=== PATIENT | male | born 1935 | race Caucasian/White ===

== ENCOUNTER → 2016-08-04 | Outpatient (CLI) | payer BC ==
[~2016-08-04] MED LIST: ACET-1175 PO; ASPCH81 PO; ASTN; ATV5X PO; CHOL2000 PO; CYCL10TA6 PO; DICL1GEL12; FURO20TA PO; HYZ/10015 PO; INSU100I17 SC; INSU1INJ7 SC; LEVO50TA PO; LOSA1TAB PO; POTA-327 PO; PRAV20TA PO; PROP80CA7 PO; SULF800T23 PO
[2016-08-04 17:19] LABS: BASO % 0.3 %; BASO ABS # 0.03 K/uL (0-0.2); COMPLETE YES; EOS % 2.4 %; HEMATOCRIT 42.2 % (42-52); IG% 0.5 %; LYMPH % 21.6 %; LYMPH ABS # 2.08 K/uL (1.2-3.4); MEAN CELL VOLUME 92.1 fL (80-100); MEAN CORPUSCULAR HEMOGLOBIN 30.1 pg (25-34); MEAN CORPUSCULAR HGB CONC 32.7 g/dl (32-36); MEAN PLATELET VOLUME 9.8 fL (7.4-10.4); MONO % 10.3 %; NEUT % 64.9 %; PLATELET COUNT 249 K/uL (130-400); RED BLOOD COUNT 4.58 M/uL (4.7-6.1); WHITE BLOOD COUNT 9.64 K/uL (4.8-10.8)
[2016-08-04 17:26] LABS: URINE APPEARANCE CLEAR (CLEAR); URINE BILIRUBIN NEG (NEG); URINE COLOR YELLOW; URINE EPITHELIAL CELL AUTO 0-5 /lpf (0-5); URINE NITRITE NEG (NEG); URINE PH 5.5 (4.5-7.5); URINE SPECIFIC GRAVITY 1.006 (1.000-1.030); UROBILINOGEN NEG (NEG); ZZUR CULT IF INDIC CLEAN CATCH NO
[2016-08-04 17:27] LABS: ALT/SGPT 32 U/L (12-78); AST/SGOT 18 U/L (15-37); BLOOD UREA NITROGEN 29 mg/dl (7-18); BUN/CREATININE RATIO 20.5 (10-20); CALCIUM 9.7 mg/dl (8.5-10.1); CARBON DIOXIDE 31 mmol/L (21-32); CHLORIDE 102 mmol/L (98-107); GLUCOSE 133 mg/dl (70-99); POTASSIUM 4.5 mmol/L (3.5-5.1); SODIUM 140 mmol/L (136-145)
[2016-08-04 17:30] LABS: ALB/GLOB RATIO 0.9 (0.9-2); ALKALINE PHOSPHATASE 82 U/L (45-117); CHOLESTEROL 160 mg/dl (0-200); CHOLESTEROL/HDL RATIO 3.7; HDL CHOLESTEROL 43 mg/dl; LDL CHOLESTEROL CALCULATED 78 mg/dl; TRIGLYCERIDES 195 mg/dl (0-150); VERY LOW DENSITY LIPOPROT CALC 39 mg/dl
[2016-08-04 17:36] LABS: MANUAL MICROSCOPIC REQUIRED? NO; REVIEW REQ? NO
[2016-08-04 17:58] LABS: RATIO 116.7 mcg/mg (0-30.0)
[2016-08-05 06:09] LABS: ESTIMATED AVERAGE GLUCOSE 192 mg/dl; HA1C FLAG Normal (Normal)
== END | disposition home or self-care (01) ==
LOC: C.LABBFT 10:16
PROVIDERS: ATTEND Internal Medicine
DX: E55.9 Vitamin D deficiency, unspecified (principal); E11.42 Type 2 diabetes mellitus with diabetic polyneuropathy; E78.5 Hyperlipidemia, unspecified

== ENCOUNTER → 2016-11-11 | Outpatient (CLI) | payer BC ==
[~2016-11-11] MED LIST changes: -SULF800T23 PO
[2016-11-12 07:34] LABS: ESTIMATED AVERAGE GLUCOSE 183 mg/dl; HA1C FLAG Normal (Normal)
== END | disposition home or self-care (01) ==
LOC: C.LABBFT 13:55
PROVIDERS: ATTEND Nurse Practitioner Adult Health
DX: E11.8 Type 2 diabetes mellitus with unspecified complications (principal)

== ENCOUNTER → 2017-01-19 | Outpatient (CLI) | payer BC ==
[2017-01-19 16:17] LABS: PROSTATE SPECIFIC ANTIGEN 13.1 ng/ml (0.000-4.000); THYROID STIMULATING HORMONE 1.01 uIu/ml (0.300-4.500)
[2017-01-25 20:21] LABS: ALTERNARIA CLASS 0; ALTERNARIA IGE <0.10 KU/L; ASPERG FUMIG CLASS 0; ASPERG FUMIG IGE <0.10 KU/L; BAHIA GRASS ASM CLASS 0; BAHIA GRASS IGE <0.10 KU/L; BERMUDA GRASS CLASS 0; BERMUDA GRASS IGE <0.10 KU/L; BIRCH CLASS 0; BLACK LOCUST CLASS 0; BLACK LOCUST IGE <0.35 kU/L (<0.35); CAT DANDER CLASS 0; CLADOSPORIUM HER CLASS 0; CLADOSPORIUM HER IGE <0.10 KU/L; COCKROACH CLASS 0; D. FARINAE CLASS 0; D. FARINAE IGE <0.10 KU/L; D. PTERONYSSINUS CLASS 0; D. PTERONYSSINUS IGE <0.10 KU/L; DOG DANDER CLASS 0; ELM CLASS 0; ENGLISH PLAN CLASS 0; ENGLISH PLAN IGE <0.10 KU/L; JOHNSON CLASS 0; JOHNSON IGE <0.10 KU/L; JUNE (KENTUCKY BLUE) CLASS 0; JUNE IGE <0.10 KU/L; MAPLE (BOX ELDER) IGE <0.10 KU/L; MAPLE CLASS 0; MOUNTAIN CEDAR ASM CLASS 0; MOUNTAIN CEDAR IGE <0.10 KU/L; MUCOR CLASS 0; MUCOR IGE <0.10 KU/L; NETTLE CLASS 0; NETTLE IGE <0.10 KU/L; PENIC NOTATUM CLASS 0; PENIC NOTATUM IGE <0.10 KU/L; ROUGH PIGWEED CLASS 0; ROUGH PIGWEED IGE <0.10 KU/L; SHORT RAGWEED CLASS 0; SHORT RAGWEED IGE <0.10 KU/L; STEMPHY BOTRY CLASS 0; STEMPHY BOTRY IGE <0.10 KU/L; WHITE HICKORY ASM CLASS 0; WHITE HICKORY IGE <0.10 kU/L (<0.35); WHITE MULBERRY CLASS 0; WHITE MULBERRY IGE <0.10 KU/L
== END | disposition home or self-care (01) ==
LOC: C.LAB1850 14:24
PROVIDERS: ATTEND Internal Medicine Pulmonary Disease
DX: R97.20 Elevated prostate specific antigen [PSA] (principal); E03.9 Hypothyroidism, unspecified; J31.0 Chronic rhinitis; R05 Cough; R09.82 Postnasal drip

== ENCOUNTER → 2017-05-09 | Outpatient (CLI) | payer BC ==
[~2017-05-09] MED LIST changes: -HYZ/10015 PO
[2017-05-10 06:48] LABS: ESTIMATED AVERAGE GLUCOSE 177 mg/dl; HA1C FLAG Normal (Normal)
== END | disposition home or self-care (01) ==
LOC: C.LAB1850 16:13
PROVIDERS: ATTEND Nurse Practitioner Adult Health
DX: E11.69 Type 2 diabetes mellitus with other specified complication (principal)

== ENCOUNTER → 2017-09-11 | Outpatient (CLI) | payer BC ==
[2017-09-11 15:45] LABS: BLOOD UREA NITROGEN 25 mg/dl (7-18); CALCIUM 9.6 mg/dl (8.5-10.1); CARBON DIOXIDE 29 mmol/L (21-32); GLUCOSE 177 mg/dl (70-99); SODIUM 138 mmol/L (136-145)
== END | disposition home or self-care (01) ==
LOC: C.LAB1850 14:14
PROVIDERS: ATTEND Nurse Practitioner Adult Health
DX: R97.20 Elevated prostate specific antigen [PSA] (principal); E11.319 Type 2 diabetes mellitus with unspecified diabetic retinopathy without macular edema; E11.29 Type 2 diabetes mellitus with other diabetic kidney complication

== ENCOUNTER → 2018-03-09 | Outpatient (CLI) | payer BC ==
[~2018-03-09] MED LIST changes: +PROP80CA29 PO; -PROP80CA7 PO
[2018-03-09 17:48] LABS: BLOOD UREA NITROGEN 26 mg/dl (7-18); CALCIUM 9.4 mg/dl (8.5-10.1); CARBON DIOXIDE 30 mmol/L (21-32); CHOLESTEROL 146 mg/dl (0-200); GLUCOSE 146 mg/dl (70-99); LDL CHOLESTEROL CALCULATED 61 mg/dl; POTASSIUM 4.2 mmol/L (3.5-5.1); SODIUM 141 mmol/L (136-145)
== END | disposition home or self-care (01) ==
LOC: C.LABBFT 12:02
PROVIDERS: ATTEND Nurse Practitioner Adult Health
DX: I10 Essential (primary) hypertension (principal); E11.29 Type 2 diabetes mellitus with other diabetic kidney complication; E78.5 Hyperlipidemia, unspecified

== ENCOUNTER 2021-04-24 21:11 | Inpatient (IN) ==
[2021-04-24 21:52] LABS: Appearance Urine Clear (Clear); Bacteria Urine Automated Negative (Negative); Bilirubin Urine Negative (Negative); Blood Urine Negative (Negative); Color Urine Yellow; Glucose Urine UA Negative (Negative); Ketones Urine Negative (Negative); Leukocyte Esterase Urine Trace (Negative); Nitrite Urine Negative (Negative); Protein Urine 1+ (Negative); RBC Urine Automated 0-4 /hpf (0-4); Specific Gravity Urine 1.012 (1.000-1.030); Urobilinogen Urine Negative (Negative); pH Urine 6.5 (4.5-7.5)
[2021-04-24 21:58] LABS: Basophils # (auto) 0.03 K/uL (0-0.2); Basophils % (auto) 0.2 %; Eosinophils # (auto) 0.47 K/uL (0-0.5); Eosinophils % (auto) 3.8 %; Hematocrit (blood only) 43.2 % (42-52); Hemoglobin 13.2 g/dL (14.0-18.0); Immature Granulocytes # (auto) 0.03 K/uL (0.00-0.02); Immature Granulocytes % (auto) 0.2 %; Lymphocytes # (auto) 1.41 K/uL (1.2-3.4); Lymphocytes % (auto) 11.5 %; Mean Corpuscular Hemoglobin 27.4 pg (25-34); Mean Corpuscular Hgb Conc 30.6 g/dL (32-36); Mean Corpuscular Volume 89.8 fL (80-100); Mean Platelet Volume 9.5 fL (7.4-10.4); Monocytes # (auto) 1.49 K/uL (0.11-0.59); Monocytes % (auto) 12.1 %; Neutrophils # (auto) 8.84 K/uL (1.4-6.5); Neutrophils % (auto) 72.2 %; Platelet Count 300 K/uL (130-400); RDW Coefficient of Variation 15.8 % (11.5-14.5); RDW Standard Deviation 52.2 fL (36.4-46.3); Red Blood Count 4.81 M/uL (4.7-6.1); White Blood Count 12.27 K/uL (4.8-10.8)
--- NOTE | 2021-04-24 22:08 | XRay Report ---
XR chest 1V portable INDICATION: MN ^weakness . TECHNIQUE: Single frontal radiograph of the chest was obtained. Comparison: Comparison is made to chest one view 09/28/2018 FINDINGS: No lines and tubes are seen. Calcified aortic knob is seen. Lungs are underinflated but clear. No annie dence of pleural effusion or pneumothorax. IMPRESSION: No acute chest disease. ACT 112: Negative or not required by law. Electronically signed by: Jamie Ramey M.D. 04/24/2021 10:07 PM
[2021-04-24 22:10] LABS: Albumin Level 2.8 gm/dl (3.4-5.0); BUN Creatinine Ratio 22.2 (10-20); Calcium 9.9 mg/dl (8.5-10.1); Creatinine Clr Calc Pharmacy 58.5 ml/min; Est GFR (African American) 59.3 ml/min; Est GFR (Non-African American) 51.2 ml/min; Potassium 4.3 mmol/L (3.5-5.1)
[2021-04-24 22:20] LABS: Albumin Globulin Ratio 0.5 (0.9-2); Bilirubin,Total 0.5 mg/dl (0.2-1); Globulin 5.3 gm/dl (2.5-4.0); Thyroid Stimulating Hormone 2.82 uIu/ml (0.300-4.500); Total Protein 8.1 gm/dl (6.4-8.2)
[2021-04-24] MEDS ORDERED: VANCOMYCIN HCL 2,750 MG in SODIUM CHLORIDE 0.9% 500 ML IV ONE (22:20)
[2021-04-24] MEDS ORDERED: PIPERACILL/TAZOBAC CONSULT ACTIVE PRN (22:20)
[2021-04-24] MEDS ORDERED: PIPERACILLIN/TAZOBACTAM 4.5 GM/120 ML BAG IV ONE (22:20)
[2021-04-24] MEDS ORDERED: VANCOMYCIN CONSULT ACTIVE PRN (22:20)
[2021-04-24] MEDS ORDERED: CLINDAMYCIN 900 MG in DEXTROSE 5% 50 ML IV ONE (22:20)
[2021-04-24] MEDS ORDERED: SODIUM CHLORIDE 0.9% 1000ML 1,000 ML IV ONE (22:32)
[2021-04-24 22:47] LABS: C Reactive Protein 1.91 mg/dl (0-0.29)
[2021-04-24] MEDS ORDERED: OPTIRAY 320 125ml IV ONE (23:09)
--- NOTE | 2021-04-24 23:16 | CT Scan Report ---
CT angio chest PE protocol INDICATION: MN ^PE. TECHNIQUE: Multidetector row helical CT of the chest was performed. Coronal and sagittal reformations were obtained. Automated dose lowering techniques and/or adjustment according to patient size were u tilized for this exam. Comparison: None available at the time of this dictation. FINDINGS: Lungs and pleura: Bibasilar atelectasis versus scarring is seen. Heart and pericardium: Cardiomegaly is seen with biatrial enlargement. Vessels: Limited evaluation due to photon starvation. No central or lobar pulmonary embolism is seen. The pulmonary trunk measures 30 mm, the right pulmonary artery measures 26 mm, and the left pulmonar y artery measures 27 mm in diameter. Mediastinum and ashley: Unremarkable. Chest wall and lower neck: Unremarkable. Abdomen: Unremarkable. Bones: Degenerative changes in the thoracic spine. IMPRESSION: 1. Limited evaluation secondary to photon starvation. However within these limits, no central or lob ar pulmonary embolus is seen. 2. Bilateral atelectasis versus scarring. 3. Cardiomegaly and pulmonary hypertension. ACT 112: Negative or not required by law. Electronically signed by: Jamie Ramey M.D. 04/24/2021 11:15 PM
[2021-04-24 23:18] LABS: Creatine Kinase 112 U/L (39-308)
--- NOTE | 2021-04-24 23:32 | CT Scan Report ---
CT abd pelvis IV con only CLINICAL INDICATION: MN ^B12B CTR ^lower abd and rectal/perineum pain and infection. TECHNIQUE: Helical axial images of the abdomen and pelvis were obtained and displayed. Automated dose lowering techniques and/or adjustment according to patient size were utilized for this exam. This e xam was performed with intravenous contrast. COMPARISON: None available at the time of this dictation. FINDINGS: Exam is limited due to photon starvation artifact. Lower chest: No acute abnormality Liver: Unremarkable. No focal lesions are seen. Gallbladder and biliary tree: No calcified gallstones. Normal caliber wall. No intra- or extrahepatic biliary ductal dilation. Pancreas: Fatty replacement of the pancreas is seen. There is increased density at the pancreatic hea d with suggestion of peripancreatic stranding, though evaluation is limited. Spleen: Unremarkable. Adrenals: Unremarkable. Kidneys and ureters: Subcentimeter hypodensities are too small to characterize. Bladder: Unremarkable. Reproductive organs: Prostatomegaly is seen. Bowel: Diverticulosis is seen without evidence of diverticulitis. The appendix is normal. Lymph nodes Retroperitoneal: Unremarkable. Mesenteric: Unremarkable. Pelvic: Unremarkable. Peritoneum: Normal Vessels: Atherosclerotic calcifications are seen. Abdominal wall: Unremarkable. Evaluation of the inferior gluteal crease is limited due to field of vi ew. Bones: Degenerative changes in the visualized spine. IMPRESSION: Limited exam. There is suggestion of edema and peripancreatic fat stranding of the pancreatic head. C linical correlation for acute pancreatitis is recommended. Otherwise no acute abnormalities. Evaluati on for infectious process and the inferior gluteal crease is limited due to field of view. ACT 112: Negative or not required by law. Electronically signed by: Jamie Ramey M.D. 04/24/2021 11:30 PM
[2021-04-24 23:49] LABS: Lipase 195 U/L (73-393)
--- NOTE | 2021-04-24 23:51 | Emergency Department Note ---
ED Visit Note Patient was seen and evaluated at the bedside w/ Belen Ag PA-C. Please see their note for history, physical, details, and disposition. Patient did present with increasing weakness and shortness of breath. The patient was satting in the 80s. Patient did have bladder completed on along with CTs. CT angiography without PE but does show pulmonary hypertension. The patient does have cellulitis. Patient was admitted to the hospitalist service. .
--- NOTE | 2021-04-25 00:12 | Emergency Department Note ---
History of Present Illness General Chief complaint: Weakness Stated complaint: Weakness Time Seen by Provider: 04/24/21 21:51 History of Present Illness This 85-year-old presents to the ER complaining of increasing weakness, shortness of breath and not feeling well for the past few days Location: Generalized Quality: Weak Severity: Moderate Duration: Past few days Timing: Started few days ago Context: Family was concerned and brought him in Modifying factors: better with rest; worse with activity EMS states his pulse ox was in the 80s when they arrived which improved with nasal cannula. Patient does not normally wear oxygen. No history of heart failure. Patient states he has become more weak recently. He does not get around much. Patient complains of lower abdominal pain and rectal discomfort. He states his legs normally look like this. Patient did fall today because of weakness but did not hit his head. Patient denies chest pain, fevers, flulike illness. Home Medications Medication Instructions Recorded Confirmed Type acetaminophen 325 mg tablet 650 mg PO QID PRN 09/28/18 11/16/20 History (Tylenol) aspirin 81 mg tablet,delayed 81 mg PO DAILY 09/28/18 11/16/20 History release (Aspir-) cholecalciferol (vitamin D3) 50 2,000 unit PO DAILY 09/28/18 11/16/20 History mcg (2,000 unit) capsule (Vitamin D3) diclofenac sodium 1 % topical gel 4 g TOPICAL Q6 PRN 09/28/18 11/16/20 History (Voltaren) ipratropium bromide 21 mcg (0.03 1 - 2 sprays INTNAS .COMPLEX PRN 02/28/19 0 11/16/20 History %) nasal spray ml pen needle, diabetic 31 gauge x #400 ea 01/09/20 11/16/20 Rx 16" (BD Ultra-Fine Short Pen Needle) potassium chloride 10 mEq 10 meq PO DAILY #90 tab 03/20/20 11/16/20 Rx tablet,extended release (Klor-Con) insulin lispro 100 unit/mL See Rx Instructions SUBCUT 06/30/20 11/16/20 Rx subcutaneous pen (Humalog KwikPen .COMPLEX #8 box (U-100) Insulin) furosemide 20 mg tablet (Lasix) 20 mg PO DAILY #90 tab 10/26/20 11/16/20 Rx hydrochlorothiazide 25 mg tablet 25 mg PO DAILY #90 tab 10/26/20 11/16/20 Rx levothyroxine 50 mcg tablet 50 mcg PO DAILY #90 tab 10/26/20 11/16/20 Rx (Synthroid) lorazepam 0.5 mg tablet (Ativan) 0.5 mg PO HS PRN #30 tab 10/26/20 11/16/20 Rx losartan 100 mg tablet 100 mg PO DAILY #90 tab 10/26/20 11/16/20 Rx pravastatin 80 mg tablet 80 mg PO DAILY #90 tab 10/26/20 11/16/20 Rx propranolol 120 mg capsule,24 120 mg PO DAILY #90 cap 10/26/20 11/16/20 Rx hr,extended release (Inderal LA) Basaglar KwikPen U-100 Insulin 100 80 unit SUBCUT BID 90 Days #150 ml 11/17/20 Rx unit/mL (3 mL) subcutaneous NS (insulin glargine) blood sugar diagnostic (OneTouch #400 ea 11/17/20 Rx Verio test strips) Allergies Allergy/AdvReac Type Severity Reaction Status Date / Time amlodipine Allergy Unknown unknown Verified 11/16/20 14:08 primidone Allergy Unknown unknown Verified 11/16/20 14:08 sertraline Allergy Unknown Unknown Verified 04/25/21 01:17 Sulfa (Sulfonamide Allergy Unknown Unknown Verified 04/25/21 01:17 Antibiotics) Past Med/Surg History Medical History Decubitus ulcer Diabetes with neurologic complications Surgical History History of colonoscopy Family History Brother Prostate cancer Social History (Updated 04/25/21 @ 01:41 by Isidra Banks DO) Smoking Status: Former smoker Tobacco Type: Cigarettes packs per day: 2; Years Smoked: 20; Hx Alcohol Use: No Hx Substance Use: No Preferred Language: Cambodian Communication Ability: Effective Quality [facility] Required: Yes Beliefs That Will Affect Care: None Current Living Situation Comment: Lives with son and daughter in law current occupational status: retired Feels Safe at Home: Yes Safety Concerns: Feels Safe At This Time Assistive Devices: Glasses and Walker Review of Systems A total of 10 systems reviewed and were otherwise negative Physical Exam Vital Signs Vital Signs - 24 hr 04/24/21 21:20 04/24/21 21:22 04/24/21 21:30 Temperature 36.8 C Temperature Source Oral Pulse Rate 86 83 74 Pulse Rate from SpO2 Sensor Pulse Rhythm Regular Pulse Strength Normal Respiratory Rate 22 20 22 Respiratory Effort / Characteristics Non-Labored Respiratory Depth Normal Respiratory Pattern Regular Blood Pressure 156/80 H Blood Pressure [Left Arm] Blood Pressure Mean 105 Blood Pressure Mean [Left Arm] Blood Pressure Position Sitting Pulse Oximetry 94 99 95 Oxygen Delivery Method Nasal Cannula Oxygen Flow Rate 4 Sepsis Recent Fever Within 48 Hours No Sepsis New/Unexplained Change in Mental Status No Sepsis Action Taken by Nursing No Action Required 04/24/21 21:33 04/24/21 21:43 04/24/21 21:44 Temperature Temperature Source Pulse Rate Pulse Rate from SpO2 Sensor Pulse Rhythm Pulse Strength Respiratory Rate Respiratory Effort / Characteristics Respiratory Depth Respiratory Pattern Blood Pressure Blood Pressure [Left Arm] Blood Pressure Mean Blood Pressure Mean [Left Arm] Blood Pressure Position Pulse Oximetry 93 90 90 Oxygen Delivery Method Nasal Cannula Nasal Cannula Nasal Cannula Oxygen Flow Rate 4 6 6 Sepsis Recent Fever Within 48 Hours Sepsis New/Unexplained Change in Mental Status Sepsis Action Taken by Nursing 04/24/21 22:00 04/24/21 22:30 04/24/21 22:36 Temperature 36.6 C Temperature Source Rectal Pulse Rate 77 74 Pulse Rate from SpO2 Sensor Pulse Rhythm Pulse Strength Respiratory Rate 13 16 Respiratory Effort / Characteristics Respiratory Depth Respiratory Pattern Blood Pressure Blood Pressure [Left Arm] Blood Pressure Mean Blood Pressure Mean [Left Arm] Blood Pressure Position Pulse Oximetry 92 92 Oxygen Delivery Method Oxygen Flow Rate Sepsis Recent Fever Within 48 Hours Sepsis New/Unexplained Change in Mental Status Sepsis Action Taken by Nursing 04/24/21 22:51 04/24/21 23:09 04/24/21 23:30 Temperature Temperature Source Pulse Rate 82 86 Pulse Rate from SpO2 Sensor 85 83 Pulse Rhythm Pulse Strength Respiratory Rate 12 27 H Respiratory Effort / Characteristics Respiratory Depth Respiratory Pattern Blood Pressure Blood Pressure [Left Arm] 159/59 H Blood Pressure Mean Blood Pressure Mean [Left Arm] 92 Blood Pressure Position Pulse Oximetry 92 87 L Oxygen Delivery Method Oxygen Flow Rate 6 6 Sepsis Recent Fever Within 48 Hours Sepsis New/Unexplained Change in Mental Status Sepsis Action Taken by Nursing 04/25/21 00:11 04/25/21 00:30 Temperature Temperature Source Pulse Rate 79 72 Pulse Rate from SpO2 Sensor Pulse Rhythm Pulse Strength Respiratory Rate 16 15 Respiratory Effort / Characteristics Respiratory Depth Respiratory Pattern Blood Pressure 127/64 Blood Pressure [Left Arm] Blood Pressure Mean 85 Blood Pressure Mean [Left Arm] Blood Pressure Position Pulse Oximetry 92 Oxygen Delivery Method Oxygen Flow Rate 6 Sepsis Recent Fever Within 48 Hours Sepsis New/Unexplained Change in Mental Status Sepsis Action Taken by Nursing VITALS: Vitals are noted on the nurse's note and reviewed by myself. Vital signs hypoxic on room air but improved with nasal cannula. GENERAL: Elderly male weak appearing, in no acute distress, nondiaphoretic, well-developed well-nourished. SKIN: Venous stasis changes to lower legs with left leg more erythematous and warm concerning for infection, stage II decubitus ulcer to the buttocks with surrounding erythema extending to the scrotum and perineum tender to palpation concerning for infection, lower abdominal pannus and groin area with candidiasis, the rest of the skin was without bruising. There is no tenting of the skin. Capillary reflex less than 2 seconds. HEAD: Normocephalic atraumatic. EARS: External auditory canals clear, EYES: Pupils equal round and reactive to light and accommodation. Conjunctivae without injection, sclerae without icterus. Extraocular movements intact. NOSE: Patent, turbinates without inflammation or discharge. No sinus tenderness. MOUTH: Mucous membranes mildly dry. Pharynx without erythema or exudate. Uvula midline. Airway patent. Tongue does not deviate. NECK: Supple without nuchal rigidity. No lymphadenopathy. No thyromegaly. Cervical spine is nontender. No JVD. HEART: Regular rate and rhythm LUNGS: Clear to auscultation bilaterally without wheezes, rales or rhonchi. No retractions or accessory muscle use. ABDOMEN: Positive bowel sounds x 4. Normal tympanic percussion. Soft, tender lower abdomen, without masses or organomegaly. Nieto sign negative. No guarding or rebound tenderness. No CVA tenderness MUSCULOSKELETAL: No muscle atrophy noted. NEURO: Patient was alert and oriented to person place and time. Normal sensation to light and sharp touch. No focal neurological deficits. Course Administered Medications Discontinued Medications Piperacillin Sod/Tazobactam Sod (Zosyn) 4.5 gm in 120 mls @ 240 mls/hr IV NOW ONE Stop: 04/24/21 22:49 Last Infusion: 04/24/21 23:45 Dose: 0 mls/hr Documented by: [id number] Admin: 04/24/21 23:11 Dose: 240 mls/hr Documented by: [id number] Vancomycin HCl 2,750 mg/ (Sodium Chloride) 555 mls @ 200 mls/hr IV NOW ONE Stop: 04/25/21 01:06 Last Admin: 04/24/21 23:24 Dose: 200 mls/hr Documented by: [id number] Clindamycin Phosphate 900 mg/ (Dextrose) 56 mls @ 112 mls/hr IV ONE ONE Stop: 04/24/21 22:49 Last Infusion: 04/24/21 23:45 Dose: 0 mls/hr Documented by: [id number] Admin: 04/24/21 23:11 Dose: 112 mls/hr Documented by: [id number] Sodium Chloride (Nss 1000ml) 1,000 mls @ 999 mls/hr IV .Q1H1M ONE Stop: 04/24/21 23:32 Last Admin: 04/24/21 23:25 Dose: 999 mls/hr Documented by: [id number] Ioversol (Optiray 320 125ml) 119 ml IV ONCE ONE Stop: 04/24/21 23:10 Last Admin: 04/24/21 23:09 Dose: 1 ml Documented by: [id number] Methylprednisolone (Methylprednisolone 125 Mg/2 Ml Vial) 80 mg IV NOW STA Stop: 04/25/21 00:59 Last Admin: 04/25/21 01:18 Dose: 80 mg Documented by: [id number] Medical Decision Making Medical Records Attestation: I reviewed the patient's medical records. Home Medications Current Medication List: was personally reviewed by me Laboratory Data Attestation: I reviewed the patient's lab results. Result diagrams: 04/24/21 21:30 04/24/21 21:30 Lab Results 04/24/21 04/24/21 04/24/21 Range/Units 21:30 21:30 21:30 WBC 12.27 H (4.8-10.8) K/uL RBC 4.81 (4.7-6.1) M/uL Hgb 13.2 L (14.0-18.0) g/dL Hct 43.2 (42-52) % MCV 89.8 (80-100) fL MCH 27.4 (25-34) pg MCHC 30.6 L (32-36) g/dL RDW Std Deviation 52.2 H (36.4-46.3) fL RDW Coeff of Matthieu 15.8 H (11.5-14.5) % Plt Count 300 (130-400) K/uL MPV 9.5 (7.4-10.4) fL Immature Gran % (Auto) 0.2 % Neut % (Auto) 72.2 % Lymph % (Auto) 11.5 % [place] % (Auto) 12.1 % Eos % (Auto) 3.8 % Baso % (Auto) 0.2 % Neut # (Auto) 8.84 H (1.4-6.5) K/uL Lymph # (Auto) 1.41 (1.2-3.4) K/uL Gladwin # (Auto) 1.49 H (0.11-0.59) K/uL Eos # (Auto) 0.47 (0-0.5) K/uL Baso # (Auto) 0.03 (0-0.2) K/uL Immature Gran # (Auto) 0.03 H (0.00-0.02) K/uL ESR (0-20) mm/hr Sodium 136 (136-145) mmol/L Potassium 4.3 (3.5-5.1) mmol/L Chloride 100 (98-107) mmol/L Carbon Dioxide 32 (21-32) mmol/L Anion Gap 4.0 (3-11) BUN 28 H (7-18) mg/dl Creatinine 1.27 (0.6-1.4) mg/dl Est Cr Clr Drug Dosing 58.5 ml/min Est GFR ( Amer) 59.3 ml/min Est GFR (Non-Af Amer) 51.2 ml/min BUN/Creatinine Ratio 22.2 H (10-20) Glucose 86 (70-99) mg/dl Lactate 1.6 (0.4-2.0) mmol/L Calcium 9.9 (8.5-10.1) mg/dl Total Bilirubin 0.5 (0.2-1) mg/dl AST 18 (15-37) U/L ALT 11 L (12-78) U/L Alkaline Phosphatase 93 (45-117) U/L Total Creatine Kinase (39-308) U/L C-Reactive Protein 1.91 H (0-0.29) mg/dl NT-Pro-B Natriuret Pep 152 (0-1800) pg/ml Total Protein 8.1 (6.4-8.2) gm/dl Albumin 2.8 L (3.4-5.0) gm/dl Globulin 5.3 H (2.5-4.0) gm/dl Albumin/Globulin Ratio 0.5 L (0.9-2) Lipase (73-393) U/L TSH 2.820 (0.300-4.500) uIu/ml Urine Color Urine Appearance (Clear) Urine pH (4.5-7.5) Ur Specific [place] (1.000-1.030) Urine Protein (Negative) Urine Glucose (UA) (Negative) Urine Ketones (Negative) Urine Blood (Negative) Urine Nitrite (Negative) Urine Bilirubin (Negative) Urine Urobilinogen (Negative) Ur Leukocyte Esterase (Negative) Urine WBC (Auto) (0-5) /hpf Urine RBC (Auto) (0-4) /hpf U Hyaline Cast (Auto) (0-5) /lpf U Epithel Cells (Auto) (0-5) /lpf Urine Bacteria (Auto) (Negative) Urine Yeast COVID-19 Eval Order SARS-CoV-2 (PCR) (Negative) 04/24/21 04/24/21 04/24/21 Range/Units 21:30 21:30 21:36 WBC (4.8-10.8) K/uL RBC (4.7-6.1) M/uL Hgb (14.0-18.0) g/dL Hct (42-52) % MCV (80-100) fL MCH (25-34) pg MCHC (32-36) g/dL RDW Std Deviation (36.4-46.3) fL RDW Coeff of Matthieu (11.5-14.5) % Plt Count (130-400) K/uL MPV (7.4-10.4) fL Immature Gran % (Auto) % Neut % (Auto) % Lymph % (Auto) % [place] % (Auto) % Eos % (Auto) % Baso % (Auto) % Neut # (Auto) (1.4-6.5) K/uL Lymph # (Auto) (1.2-3.4) K/uL Gladwin # (Auto) (0.11-0.59) K/uL Eos # (Auto) (0-0.5) K/uL Baso # (Auto) (0-0.2) K/uL Immature Gran # (Auto) (0.00-0.02) K/uL ESR (0-20) mm/hr Sodium (136-145) mmol/L Potassium (3.5-5.1) mmol/L Chloride (98-107) mmol/L Carbon Dioxide (21-32) mmol/L Anion Gap (3-11) BUN (7-18) mg/dl Creatinine (0.6-1.4) mg/dl Est Cr Clr Drug Dosing ml/min Est GFR ( Amer) ml/min Est GFR (Non-Af Amer) ml/min BUN/Creatinine Ratio (10-20) Glucose (70-99) mg/dl Lactate (0.4-2.0) mmol/L Calcium (8.5-10.1) mg/dl Total Bilirubin (0.2-1) mg/dl AST (15-37) U/L ALT (12-78) U/L Alkaline Phosphatase (45-117) U/L Total Creatine Kinase (39-308) U/L C-Reactive Protein (0-0.29) mg/dl NT-Pro-B Natriuret Pep (0-1800) pg/ml Total Protein (6.4-8.2) gm/dl Albumin (3.4-5.0) gm/dl Globulin (2.5-4.0) gm/dl Albumin/Globulin Ratio (0.9-2) Lipase (73-393) U/L TSH (0.300-4.500) uIu/ml Urine Color Yellow Urine Appearance Clear (Clear) Urine pH 6.5 (4.5-7.5) Ur Specific [place] 1.012 (1.000-1.030) Urine Protein 1+ H (Negative) Urine Glucose (UA) Negative (Negative) Urine Ketones Negative (Negative) Urine Blood Negative (Negative) Urine Nitrite Negative (Negative) Urine Bilirubin Negative (Negative) Urine Urobilinogen Negative (Negative) Ur Leukocyte Esterase Trace H (Negative) Urine WBC (Auto) 10-30 H (0-5) /hpf Urine RBC (Auto) 0-4 (0-4) /hpf U Hyaline Cast (Auto) 1-5 (0-5) /lpf U Epithel Cells (Auto) 10-20 H (0-5) /lpf Urine Bacteria (Auto) Negative (Negative) Urine Yeast Not Reportable COVID-19 Eval Order Covid19 at [facility] SARS-CoV-2 (PCR) NEGATIVE (Negative) 04/24/21 04/24/21 Range/Units 22:30 22:30 WBC (4.8-10.8) K/uL RBC (4.7-6.1) M/uL Hgb (14.0-18.0) g/dL Hct (42-52) % MCV (80-100) fL MCH (25-34) pg MCHC (32-36) g/dL RDW Std Deviation (36.4-46.3) fL RDW Coeff of Matthieu (11.5-14.5) % Plt Count (130-400) K/uL MPV (7.4-10.4) fL Immature Gran % (Auto) % Neut % (Auto) % Lymph % (Auto) % Glad[place] % (Auto) % Eos % (Auto) % Baso % (Auto) % Neut # (Auto) (1.4-6.5) K/uL Lymph # (Auto) (1.2-3.4) K/uL [place] # (Auto) (0.11-0.59) K/uL Eos # (Auto) (0-0.5) K/uL Baso # (Auto) (0-0.2) K/uL Immature Gran # (Auto) (0.00-0.02) K/uL ESR 87 H (0-20) mm/hr Sodium (136-145) mmol/L Potassium (3.5-5.1) mmol/L Chloride (98-107) mmol/L Carbon Dioxide (21-32) mmol/L Anion Gap (3-11) BUN (7-18) mg/dl Creatinine (0.6-1.4) mg/dl Est Cr Clr Drug Dosing ml/min Est GFR ( Amer) ml/min Est GFR (Non-Af Amer) ml/min BUN/Creatinine Ratio (10-20) Glucose (70-99) mg/dl Lactate (0.4-2.0) mmol/L Calcium (8.5-10.1) mg/dl Total Bilirubin (0.2-1) mg/dl AST (15-37) U/L ALT (12-78) U/L Alkaline Phosphatase (45-117) U/L Total Creatine Kinase 112 (39-308) U/L C-Reactive Protein (0-0.29) mg/dl NT-Pro-B Natriuret Pep (0-1800) pg/ml Total Protein (6.4-8.2) gm/dl Albumin (3.4-5.0) gm/dl Globulin (2.5-4.0) gm/dl Albumin/Globulin Ratio (0.9-2) Lipase 195 (73-393) U/L TSH (0.300-4.500) uIu/ml Urine Color Urine Appearance (Clear) Urine pH (4.5-7.5) Ur Specific [place] (1.000-1.030) Urine Protein (Negative) Urine Glucose (UA) (Negative) Urine Ketones (Negative) Urine Blood (Negative) Urine Nitrite (Negative) Urine Bilirubin (Negative) Urine Urobilinogen (Negative) Ur Leukocyte Esterase (Negative) Urine WBC (Auto) (0-5) /hpf Urine RBC (Auto) (0-4) /hpf U Hyaline Cast (Auto) (0-5) /lpf U Epithel Cells (Auto) (0-5) /lpf Urine Bacteria (Auto) (Negative) Urine Yeast COVID-19 Eval Order SARS-CoV-2 (PCR) (Negative) Imaging Data Attestation: I personally reviewed and interpreted this imaging study as follows: Radiologist's Impression: Chest X-Ray 04/24/21 21:42 XR chest 1V portable INDICATION: MN ^weakness . TECHNIQUE: Single frontal radiograph of the chest was obtained. Comparison: Comparison is made to chest one view 09/28/2018 FINDINGS: No lines and tubes are seen. Calcified aortic knob is seen. Lungs are underinflated but clear. No evidence of pleural effusion or pneumothorax. IMPRESSION: No acute chest disease. ACT 112: Negative or not required by law. Electronically signed by: Jamie Ramey M.D. 04/24/2021 10:07 PM Abdomen/Pelvis CT 04/24/21 22:16 CT abd pelvis IV con only CLINICAL INDICATION: MN ^B12B CTR ^lower abd and rectal/perineum pain and infection. TECHNIQUE: Helical axial images of the abdomen and pelvis were obtained and displayed. Automated dose lowering techniques and/or adjustment according to patient size were utilized for this exam. This exam was performed with intravenous contrast. COMPARISON: None available at the time of this dictation. FINDINGS: Exam is limited due to photon starvation artifact. Lower chest: No acute abnormality Liver: Unremarkable. No focal lesions are seen. Gallbladder and biliary tree: No calcified gallstones. Normal caliber wall. No intra- or extrahepatic biliary ductal dilation. Pancreas: Fatty replacement of the pancreas is seen. There is increased density at the pancreatic head with suggestion of peripancreatic stranding, though evaluation is limited. Spleen: Unremarkable. Adrenals: Unremarkable. Kidneys and ureters: Subcentimeter hypodensities are too small to characterize. Bladder: Unremarkable. Reproductive organs: Prostatomegaly is seen. Bowel: Diverticulosis is seen without evidence of diverticulitis. The appendix is normal. Lymph nodes Retroperitoneal: Unremarkable. Mesenteric: Unremarkable. Pelvic: Unremarkable. Peritoneum: Normal Vessels: Atherosclerotic calcifications are seen. Abdominal wall: Unremarkable. Evaluation of the inferior gluteal crease is limited due to field of view. Bones: Degenerative changes in the visualized spine. IMPRESSION: Limited exam. There is suggestion of edema and peripancreatic fat stranding of the pancreatic head. Clinical correlation for acute pancreatitis is recommended. Otherwise no acute abnormalities. Evaluation for infectious process and the inferior gluteal crease is limited due to field of view. ACT 112: Negative or not required by law. Electronically signed by: Jamie Ramey M.D. 04/24/2021 11:30 PM Chest CTA 04/24/21 22:16 CT angio chest PE protocol INDICATION: MN ^PE. TECHNIQUE: Multidetector row helical CT of the chest was performed. Coronal and sagittal reformations were obtained. Automated dose lowering techniques and/or adjustment according to patient size were utilized for this exam. Comparison: None available at the time of this dictation. FINDINGS: Lungs and pleura: Bibasilar atelectasis versus scarring is seen. Heart and pericardium: Cardiomegaly is seen with biatrial enlargement. Vessels: Limited evaluation due to photon starvation. No central or lobar pulmonary embolism is seen. The pulmonary trunk measures 30 mm, the right pulmonary artery measures 26 mm, and the left pulmonary artery measures 27 mm in diameter. Mediastinum and ashley: Unremarkable. Chest wall and lower neck: Unremarkable. Abdomen: Unremarkable. Bones: Degenerative changes in the thoracic spine. IMPRESSION: 1. Limited evaluation secondary to photon starvation. However within these limits, no central or lobar pulmonary embolus is seen. 2. Bilateral atelectasis versus scarring. 3. Cardiomegaly and pulmonary hypertension. ACT 112: Negative or not required by law. Electronically signed by: Jamie Ramey M.D. 04/24/2021 11:15 PM [facility] Narrative Prior records/ancillary studies reviewed and summarized above. Nursing notes reviewed. Additional history obtained from family. The patient's history was concerning for increasing weakness, dyspnea, concern for infection. Differential diagnosis: Etiologies such as metabolic, infection, hypo/hyperglycemia, electrolyte abnormalities, cardiac sources, intracerebral event, toxicologic, neurologic, as well as others were entertained. Physical examination: As above. ER treatment provided: IV Lock An order was placed for continuous cardiac monitoring. The monitor shows a rate of 60-1 10 with a sinus rhythm. IV fluids, vancomycin, Zosyn, Cleocin On reassessment the patient felt better. Diagnostics interpretation by me: ECG: Ordered for weakness EKG: Normal sinus, occasional PVC, no acute ST-T wave changes, rate of 74. Impr ession normal sinus rhythm with occasional PVC poor baseline interpreted by myself The labs revealed leukocytosis, elevated laboratory markers, negative Covid. Negative urine. Blood cultures pending Imaging studies: As above Consultation: A consultation was placed with the hospitalist. The case was discussed and diagnostics were reviewed. The patient was evaluated in the ER for further treatment. Exam and history seem consistent with extensive cellulitis to the perineum and lower leg. There is concerns for possible FG. He was started on broad-spectrum antibiotics. He was tender in his perineum. His scrotum was red and dark- colored, no palpable crepitus. Wound culture was taken from the decubitus ulcer and sent to lab. The son was concerned as his father has been seeing animals that or not they are thinking that they are his who back in August. This has been ongoing for the past few months. The son states his memory seems to be intact otherwise. Patient and family are agreeable treatment plan of admission. Medicine was made aware of what the son statements were to me. By the evaluation outlined above emergent etiologies such as electrolyte abnormalities, cardiac sources, intracerebral event, toxologic, abnormalities blood glucose, metabolic, as well as others were deemed relatively unlikely. The pt informed about the findings as listed above. All questions were answered and pleased with the treatment. The chart was completed utilizing [employer] Speech voice recognition software. Grammatical errors, random word insertions, pronoun errors, and incomplete sentences are an occassional consequence of this system due to software limitations, ambient noise, and hardware issues. Any formal questions or concerns about the content, text, or information contained within the body of this dictation should be directly addressed to the physician seed laboratory assistant for clarification. Impression & Plan Cellulitis of buttock, Cellulitis, perineum, Weakness Discharge Plan Visit Data Chief Complaint: Weakness Stated Complaint: Weakness ED Provider: Geraldo Disla ED Midlevel Provider: Silvana Ag Discharge Problem: Cellulitis of buttock, Cellulitis, perineum, Weakness Patient Disposition: Admitted As Inpatient Condition: Fair Discharge Instructions Interventions: ED Discharge Assessment Last Done: 04/25/21 01:22
[2021-04-25] MEDS ORDERED: methylPREDNISolone 125 MG/2 ML VIAL IV STA (00:58)
[2021-04-25] MEDS ORDERED: PIPERACILLIN/TAZOBACTAM 4.5 GM in DEXTROSE 5% 100 ML IV SCH (00:58)
[2021-04-25] MEDS ORDERED: PIPERACILL/TAZOBAC CONSULT ACTIVE PRN (00:58)
--- NOTE | 2021-04-25 00:59 | History & Physical Report ---
Date of Service April 25, 2021 Assessment & Plan (1) Acute respiratory failure with hypoxia: (2) Cellulitis of buttock: (3) Cellulitis, perineum: (4) Diabetes with neurologic complications: (5) CHF (congestive heart failure): (6) Hyperlipidemia: (7) Hypertension: (8) Hypothyroidism: (9) Occlusion of carotid artery: (10) Stage 2 chronic kidney disease: Plan: 85-year-old male past medical history significant for chronic buttock decubitus ulcer, CHF (per record, no Echo on file), DM2 on insulin therapy, HTN, HLD, hypothyroidism, CKD, [id number] smoking history admitted for skin/soft tissue infection and acute hypoxic respiratory failure. Acute hypoxic respiratory failure: While unclear in etiology, most suspicious for COPD as patient has a robust smoking history. BNP normal, no signs of fluid overload. Continue home Lasix 20 mg p.o. with low-sodium diet. Do not suspect findings are secondary to CHF exacerbation. No PE on imaging. Receiving Dapto/Zosyn for buttock infection as described below. No signs of pneumonia on imaging or exam. We will treat with Solu-Medrol 80 mg x 1, and then start prednisone p.o. taper. Have ordered daily Spiriva (recommend on discharge), scheduled DuoNebs, and as needed albuterol. Suspect that patient may have a baseline oxygen requirement given that he has been dealing with shortness of breath for years. Patient would likely benefit from a sleep study to determine if he has cent ral/obstructive sleep apnea on top of obstructive disease. Stage III decubitus ulcer, buttock/perineal cellulitis: Patient with a several years history of nonhealing decubitus ulcer, previously following with wound care clinic. Has not been following with wound care clinic due to COVID-19 pandemic and fear of leaving the house. Presents with findings suggestive of infection both on lab work and exam. Blood cultures collected. Dapto/Zosyn initiated to cover for MRSA and Pseudomonas given risk factors. Will hold statin given daptomycin. Wound care inpatient nursing consulted. No findings on exam suggestive of Deena's; should patient start to decompensate or have worsening on exam/lab work would recommend reimaging. Nystatin topical 3 times daily for candidal infection. Legs appear to be chronically red and swollen; is on antibiotics for buttock cellulitis regardless. DM2: Patient is on insulin therapy at baseline; last A1c 8.7% in 2019. We will start patient on basal/bolus insulin with adjustments as needed based on intake and steroid use. DM2 diet. A1c ordered with AM labs. Hypertension, hyperlipidemia, CAD: Continue daily aspirin, HCTZ, losartan, propranolol. Hypothyroidism: Continue home levothyroxine. CODE STATUS: Full code FEN: Heart healthy, DM2, low-sodium diet DVT prophylaxis: Lovenox 40 mg subcu twice daily Dispo: Med/Surg with Telemetry History of Present Illness Chief Complaint: Shortness of breath, weakness Primary Care Provider: Alexandru Horvath MD 85-year-old male past medical history significant for chronic buttock decubitus ulcer, CHF (per record, no Echo on file), bilateral lower extremity chronic venous stasis, DM2 on insulin therapy, HTN, HLD, hypothyroidism, CKD, [id number] smoking history presented to the ER for worsening of weakness at home with a fall sustained yesterday. Son also provides some history. Per the patient, over the last week or so there have been 2 separate falls where he felt like his legs were overwhelmingly weak bilaterally. After the first fall, his son was able to pick him back up, however after yesterday's fall he was not able to do so, and EMS was called. En route to the ER patient was noted to be hypoxic in the 80s, improved and currently on 6LNC. Patient reports that he has had issues with shortness of breath for the last couple of years. He reports that the dyspnea he he feels in the ER is similar to that which she has been experiencing chronically. Per son, patient has chronic buttock decubitus ulcer and was following with wound care however this has not been happening due to patient's refusal to leave the house due to COVID-19. He has had this chronic wound for about 3 years, and prior to his passing away she was the one taking care of the wound. He also has chronic bilateral lower extremity edema and redness. No recent injuries to his legs. Reports that his third toe has been discolored for "months". He does not report any recent history of fevers or chills, nausea or vomiting, chest pain, lightheadedness or vertigo, urinary symptoms. He does endorse a chronic issue with constipation, and did have an episode of diarrhea 2 days ago. Patient lives at home with his son. He reports that he quit smoking many years ago, however smoked 1 to 2 packs/day for at least 20 years. He does not have a diagnosed history of sleep apnea though his son reports he does often snore or gasp at night. He has not had to wear oxygen in the past. In the ER patient was noted to have a decubitus ulcer to the buttocks that was tender to palpation with concern for infection. Given shortness of breath, CTA chest was performed which did not show any signs of pneumonia, PE, or fluid overload. It did however note signs of pulmonary hypertension. CT abdomen and pelvis revealed some edema and peripancreatic fat stranding of the pancreatic head. Imaging was unable to evaluate the inferior gluteal crease due to [id number]. He was noted to have elevated WBC count to 12.27, creatinine 1.27 (baseline), normal lactate, BNP 152, lipase normal. UA without bacteria, no nitrites, trace leuk esterase. COVID-19 testing negative. He was given vancomycin and Zosyn and consult was placed for admission. Allergies Allergy/AdvReac Type Severity Reaction Status Date / Time amlodipine Allergy Unknown unknown Verified 04/25/21 02:06 primidone Allergy Unknown unknown Verified 04/25/21 02:06 sertraline Allergy Unknown Unknown Verified 04/25/21 02:06 Sulfa (Sulfonamide Allergy Unknown Unknown Verified 04/25/21 02:06 Antibiotics) Home Medications Medication Instructions Recorded Confirmed Type acetaminophen 325 mg tablet 650 mg PO QID PRN 09/28/18 04/25/21 History (Tylenol) aspirin 81 mg tablet,delayed 81 mg PO DAILY 09/28/18 04/25/21 History release (Aspir-) cholecalciferol (vitamin D3) 50 2,000 unit PO DAILY 09/28/18 04/25/21 History mcg (2,000 unit) capsule (Vitamin D3) diclofenac sodium 1 % topical gel 4 g TOPICAL Q6 PRN 09/28/18 04/25/21 History (Voltaren) ipratropium bromide 21 mcg (0.03 1 - 2 sprays INTNAS .COMPLEX PRN 02/28/19 04/25/21 History %) nasal spray ml pen needle, diabetic 31 gauge x #400 ea 01/09/20 04/25/21 Rx 5/16" (BD Ultra-Fine Short Pen Needle) potassium chloride 10 mEq 10 meq PO DAILY #90 tab 03/20/20 04/25/21 Rx tablet,extended release (Klor-Con) furosemide 20 mg tablet (Lasix) 20 mg PO DAILY #90 tab 10/26/20 04/25/21 Rx hydrochlorothiazide 25 mg tablet 25 mg PO DAILY #90 tab 10/26/20 04/25/21 Rx levothyroxine 50 mcg tablet 50 mcg PO DAILY #90 tab 10/26/20 04/25/21 Rx (Synthroid) lorazepam 0.5 mg tablet (Ativan) 0.5 mg PO HS PRN #30 tab 10/26/20 04/25/21 Rx losartan 100 mg tablet 100 mg PO DAILY #90 tab 10/26/20 04/25/21 Rx pravastatin 80 mg tablet 80 mg PO DAILY #90 tab 10/26/20 04/25/21 Rx propranolol 120 mg capsule,24 120 mg PO DAILY #90 cap 10/26/20 04/25/21 Rx hr,extended release (Inderal LA) blood sugar diagnostic (OneTouch #400 ea 11/17/20 04/25/21 Rx Verio test strips) cetirizine 10 mg tablet (Zyrtec) 10 mg PO DAILY PRN 04/25/21 04/25/21 History insulin glargine 100 unit/mL (3 0 unit SUBCUT BID 04/25/21 04/25/21 History mL) subcutaneous pen (Basaglar KwikPen U-100 Insulin) insulin lispro 100 unit/mL 0 unit SUBCUT TIDM 04/25/21 04/25/21 History subcutaneous pen (Humalog KwikPen (U-100) Insulin) Past Med/Surg History Medical History (Updated 04/25/21 @ 03:07 by Kalyani Mack DO) Anxiety and depression BPH (benign prostatic hyperplasia) CHF (congestive heart failure) Decubitus ulcer Diabetes with neurologic complications Hyperlipidemia Hypertension Hypothyroidism Surgical History History of colonoscopy Family History Brother Prostate cancer Social History (Updated 04/25/21 @ 01:41 by Isidra Banks DO) Smoking Status: Former smoker Tobacco Type: Cigarettes packs per day: 2; Years Smoked: 20; Hx Alcohol Use: No Hx Substance Use: No Preferred Language: Bengali Communication Ability: Effective Publicist Required: Yes Beliefs That Will Affect Care: None Current Living Situation Comment: Lives with son and daughter in law current occupational status: retired Feels Safe at Home: Yes Safety Concerns: Feels Safe At This Time Assistive Devices: Glasses and Walker Review of Systems Review of Systems: All systems reviewed & are unremarkable except as noted in HPI & below Constitutional: no fever, no chills and no malaise Respiratory: + dyspnea; no cough Cardiovascular: + edema; no chest pain and no palpitations Gastrointestinal: + constipation; no abdominal pain and no diarrhea/loose stools Physical Exam Constitutional: WD/WN, vitals as above Eyes: PERRL, conjunctivae normal, anicteric sclerae ENMT: external ear and nose normal, oropharynx normal Neck: normal visual inspection Respiratory: Lung exam notable for diffuse wheezes, as well as poor air movement bilaterally. No rales, rhonchi, crackles. Cardiovascular: RRR, no murmur, no edema Gastrointestinal (Abdomen): normal bowel sounds, soft, nontender, no hepatosplenomegaly Musculoskeletal: no cyanosis or clubbing, extremities motor strength 5/5 Skin: Decubitus ulcer stage 3 (though difficult to appreciate depth into fat tissue due to habitus) noted to the right medial buttocks with surrounding erythema, mild tenderness to palpation. No purulent drainage noted. Also noted to have candidal growth in buttocks area. No crepitus, no taught skin. Bilateral lower extremities with edema to 2/3 up the hines, gomez red color with few slough wounds, no warmth to the touch, minimal tenderness to palpation. Neurologic: AAOx3, normal speech. Sensation grossly intact. Psychiatric: A+Ox3, euthymic affect Results & Data Results & Data ([facility]) Vital Signs (Past 12 Hours) Vital Signs Temp Pulse Resp BP BP Pulse Ox 04/25/21 00:11 79 16 127/64 92 04/24/21 23:30 86 27 H 87 L 04/24/21 23:09 82 12 92 04/24/21 22:51 159/59 H 04/24/21 22:36 36.6 C 04/24/21 22:30 74 16 92 04/24/21 22:00 77 13 92 04/24/21 21:44 90 04/24/21 21:43 90 04/24/21 21:33 93 04/24/21 21:30 74 22 95 04/24/21 21:22 83 20 99 04/24/21 21:20 36.8 C 86 22 156/80 H 94 Laboratory Results Laboratory Results WBC 12.27 K/uL (4.8-10.8) H 04/24/21 21:30 RBC 4.81 M/uL (4.7-6.1) 04/24/21 21:30 Hgb 13.2 g/dL (14.0-18.0) L 04/24/21 21:30 Hct 43.2 % (42-52) 04/24/21 21:30 MCV 89.8 fL (80-100) 04/24/21 21:30 MCH 27.4 pg (25-34) 04/24/21 21:30 MCHC 30.6 g/dL (32-36) L 04/24/21 21:30 RDW Std Deviation 52.2 fL (36.4-46.3) H 04/24/21 21:30 RDW Coeff of Matthieu 15.8 % (11.5-14.5) H 04/24/21 21:30 Plt Count 300 K/uL (130-400) 04/24/21 21:30 MPV 9.5 fL (7.4-10.4) 04/24/21 21:30 Immature Gran % (Auto) 0.2 % 04/24/21 21:30 Neut % (Auto) 72.2 % 04/24/21 21:30 Lymph % (Auto) 11.5 % 04/24/21 21:30 [place] % (Auto) 12.1 % 04/24/21 21:30 Eos % (Auto) 3.8 % 04/24/21 21:30 Baso % (Auto) 0.2 % 04/24/21 21:30 Neut # (Auto) 8.84 K/uL (1.4-6.5) H 04/24/21 21:30 Lymph # (Auto) 1.41 K/uL (1.2-3.4) 04/24/21 21:30 [place] # (Auto) 1.49 K/uL (0.11-0.59) H 04/24/21 21:30 Eos # (Auto) 0.47 K/uL (0-0.5) 04/24/21 21:30 Baso # (Auto) 0.03 K/uL (0-0.2) 04/24/21 21:30 Immature Gran # (Auto) 0.03 K/uL (0.00-0.02) H 04/24/21 21:30 ESR 87 mm/hr (0-20) H 04/24/21 22:30 Sodium 136 mmol/L (136-145) 04/24/21 21:30 Potassium 4.3 mmol/L (3.5-5.1) 04/24/21:30 Chloride 100 mmol/L (98-107) 04/24/21 21:30 Carbon Dioxide 32 mmol/L (21-32) 04/24/21 21:30 Anion Gap 4.0 (3-11) 04/24/21 21:30 BUN 28 mg/dl (7-18) H 04/24/21 21:30 Creatinine 1.27 mg/dl (0.6-1.4) 04/24/21 21:30 Est Cr Clr Drug Dosing 58.5 ml/min 04/24/21 21:30 Est GFR ( Amer) 59.3 ml/min 04/24/21 21:30 Est GFR (Non-Af Amer) 51.2 ml/min 04/24/21 21:30 BUN/Creatinine Ratio 22.2 (10-20) H 04/24/21 21:30 Glucose 86 mg/dl (70-99) 04/24/21 21:30 Lactate 1.6 mmol/L (0.4-2.0) 04/24/21:30 Calcium 9.9 mg/dl (8.5-10.1) 04/24/21:30 Total Bilirubin 0.5 mg/dl (0.2-1) 04/24/21 21:30 AST 18 U/L (15-37) 04/24/21 21:30 ALT 11 U/L (12-78) L 04/24/21 21:30 Alkaline Phosphatase 93 U/L (45-117) 04/24/21 21:30 Total Creatine Kinase 112 U/L (39-308) 04/24/21 22:30 C-Reactive Protein 1.91 mg/dl (0-0.29) H 04/24/21 21:30 NT-Pro-B Natriuret Pep 152 pg/ml (0-1800) 04/24/21 21:30 Total Protein 8.1 gm/dl (6.4-8.2) 04/24/21 21:30 Albumin 2.8 gm/dl (3.4-5.0) L 04/24/21 21:30 Globulin 5.3 gm/dl (2.5-4.0) H 04/24/21 21:30 Albumin/Globulin Ratio 0.5 (0.9-2) L 04/24/21 21:30 Lipase 195 U/L (73-393) 04/24/21 22:30 TSH 2.820 uIu/ml (0.300-4.500) 04/24/21 21:30 Urine Color Yellow 04/24/21 21:36 Urine Appearance Clear (Clear) 04/24/21 21:36 Urine pH 6.5 (4.5-7.5) 04/24/21 21:36 Ur Specific [place] 1.012 (1.000-1.030) 04/24/21 21:36 Urine Protein 1+ (Negative) H 04/24/21 21:36 Urine Glucose (UA) Negative (Negative) 04/24/21 21:36 Urine Ketones Negative (Negative) 04/24/21 21:36 Urine Blood Negative (Negative) 04/24/21 21:36 Urine Nitrite Negative (Negative) 04/24/21 21:36 Urine Bilirubin Negative (Negative) 04/24/21 21:36 Urine Urobilinogen Negative (Negative) 04/24/21 21:36 Ur Leukocyte Esterase Trace (Negative) H 04/24/21 21:36 Urine WBC (Auto) 10-30 /hpf (0-5) H 04/24/21 21:36 Urine RBC (Auto) 0-4 /hpf (0-4) 04/24/21 21:36 U Hyaline Cast (Auto) 1-5 /lpf (0-5) 04/24/21 21:36 U Epithel Cells (Auto) 10-20 /lpf (0-5) H 04/24/21 21:36 Urine Bacteria (Auto) Negative (Negative) 04/24/21 21:36 Urine Yeast Not Reportable 04/24/21 21:36 COVID-19 Eval Order Covid19 at [facility] 04/24/21 21:30 SARS-CoV-2 (PCR) NEGATIVE (Negative) 04/24/21 21:30 Impressions Chest X-Ray 04/24/21 21:42 XR chest 1V portable INDICATION: MN ^weakness . TECHNIQUE: Single frontal radiograph of the chest was obtained. Comparison: Comparison is made to chest one view 09/28/2018 FINDINGS: No lines and tubes are seen. Calcified aortic knob is seen. Lungs are underinflated but clear. No evidence of pleural effusion or pneumothorax. IMPRESSION: No acute chest disease. ACT 112: Negative or not required by law. Electronically signed by: Jamie Ramey M.D. 04/24/2021 10:07 PM Abdomen/Pelvis CT 04/24/21 22:16 CT abd pelvis IV con only CLINICAL INDICATION: MN ^B12B CTR ^lower abd and rectal/perineum pain and infection. TECHNIQUE: Helical axial images of the abdomen and pelvis were obtained and displayed. Automated dose lowering techniques and/or adjustment according to patient size were utilized for this exam. This exam was performed with intravenous contrast. COMPARISON: None available at the time of this dictation. FINDINGS: Exam is limited due to photon starvation artifact. Lower chest: No acute abnormality Liver: Unremarkable. No focal lesions are seen. Gallbladder and biliary tree: No calcified gallstones. Normal caliber wall. No intra- or extrahepatic biliary ductal dilation. Pancreas: Fatty replacement of the pancreas is seen. There is increased density at the pancreatic head with suggestion of peripancreatic stranding, though evaluation is limited. Spleen: Unremarkable. Adrenals: Unremarkable. Kidneys and ureters: Subcentimeter hypodensities are too small to characterize. Bladder: Unremarkable. Reproductive organs: Prostatomegaly is seen. Bowel: Diverticulosis is seen without evidence of diverticulitis. The appendix is normal. Lymph nodes Retroperitoneal: Unremarkable. Mesenteric: Unremarkable. Pelvic: Unremarkable. Peritoneum: Normal Vessels: Atherosclerotic calcifications are seen. Abdominal wall: Unremarkable. Evaluation of the inferior gluteal crease is limited due to field of view. Bones: Degenerative changes in the visualized spine. IMPRESSION: Limited exam. There is suggestion of edema and peripancreatic fat stranding of the pancreatic head. Clinical correlation for acute pancreatitis is recommended. Otherwise no acute abnormalities. Evaluation for infectious process and the inferior gluteal crease is limited due to field of view. ACT 112: Negative or not required by law. Electronically signed by: Jamie Ramey M.D. 04/24/2021 11:30 PM Chest CTA 04/24/21 22:16 CT angio chest PE protocol INDICATION: MN ^PE. TECHNIQUE: Multidetector row helical CT of the chest was performed. Coronal and sagittal reformations were obtained. Automated dose lowering techniques and/or adjustment according to patient size were utilized for this exam. Comparison: None available at the time of this dictation. FINDINGS: Lungs and pleura: Bibasilar atelectasis versus scarring is seen. Heart and pericardium: Cardiomegaly is seen with biatrial enlargement. Vessels: Limited evaluation due to photon starvation. No central or lobar pulmonary embolism is seen. The pulmonary trunk measures 30 mm, the right pulmonary artery measures 26 mm, and the left pulmonary artery measures 27 mm in diameter. Mediastinum and ashley: Unremarkable. Chest wall and lower neck: Unremarkable. Abdomen: Unremarkable. Bones: Degenerative changes in the thoracic spine. IMPRESSION: 1. Limited evaluation secondary to photon starvation. However within these limits, no central or lobar pulmonary embolus is seen. 2. Bilateral atelectasis versus scarring. 3. Cardiomegaly and pulmonary hypertension. ACT 112: Negative or not required by law. Electronically signed by: Jamie Ramey M.D. 04/24/2021 11:15 PM Code Status & VTE Plan VTE Prophylaxis Plan VTE Prophylaxis will be ordered: Yes Supervising Physician Co-Signing Physician Notes Patient seen and examined, chart reviewed, case discussed with Dr. Bakns and I agree with her assessment and plan as above. In brief, patient is an 85yo male with history of DM, HTN, HLP, CAD, Chronic venous stasis and most likely undiagnosed COPD. He lives alone at home, recently within the last year. Son is local and checks in on him often and helps with ADLs, hygiene and medical care. Patient with falls, worsening LE wounds, scrotal wound, buttock wound and SOB. Hypoxic by EMS with sats in 80's on arrival - improved with supplemental O2 On exam patient is elderly, slightly disheveled in appearance Skin - venous stasis changes with ulceration, redness and warmth as well as significant crusting of ankles, dorsum. Darkened lesions at tip of toe on right. Buttock most likely sacral decubitus stage 3, scrotum reddened, richard infection HEENT - Neck supple, No JVD Heart - distant heart sounds secondary to body habitus, +S1/S2, regular Lungs - diminished breath sounds, end-expiratory wheezing throughout Abd - Obsese, soft, NT/ND Labs and images reviewed Assessment/Plan -Wound care, IV antibiotics Daptomycin and Zosyn, turn q 2 hours -Steroid taper, nebs, supplemental O2 - patient may benefit from outpatient PFTs and sleep study. Should be discharged on inhaled anti-cholinergic and albuterol PRN for suspected undiagnosed COPD -Insulin, home medications for BP, HLP -REmainder of plan as above Resident Activity Tracking Resident Involvement: Resident Care Provided Care Provided: Adult [facility] Medicine
[2021-04-25] MEDS ORDERED: DICLOFENAC SOD 1% GEL 100 GM TUBE EXT PRN (01:24)
[2021-04-25] MEDS ORDERED: CARBOHYDRATES FOR HYPOGLYCEMIA PO PRN (01:24)
[2021-04-25] MEDS ORDERED: ALBUTEROL 0.083% NEBU SOLN 3 ML VIAL NEB PRN (01:24)
[2021-04-25] MEDS ORDERED: POLYETHYLENE (MIRALAX) 17 GM PACK PO PRN (01:24)
[2021-04-25] MEDS ORDERED: GLUCAGON FOR INJ 1 MG VIAL SQ PRN (01:24)
[2021-04-25] MEDS ORDERED: GLUCOSE 40% GEL 15 GM TUBE PO PRN (01:24)
[2021-04-25] MEDS ORDERED: LORazepam 0.5 MG TAB PO PRN (01:24)
[2021-04-25] MEDS ORDERED: DEXTROSE 50% 50 ML SYRINGE IV PRN (01:24)
[2021-04-25] MEDS ORDERED: GLUCOSE 10 TABS/TUBE PO PRN (01:24)
[2021-04-25] MEDS: ENOXAPARIN INJ 40 MG/0.4 ML SYR SQ SCH ×2 (02:40→17:34)
[2021-04-25] MEDS: ALBUT/IPRATROP 3MG/0.5MG NEB 3 ML VIAL NEB SCH ×5 (02:43→19:56)
--- NOTE | 2021-04-25 03:17 | Billing Data ---
Date of Service April 25, 2021 Coding Level of Care Code 20889 Initial Inpt Care Lvl 3
[2021-04-25] MEDS ORDERED: INSULIN ASPART 100 UNITS/ML 3 ML PEN SC ONE (04:00)
[2021-04-25] MEDS: PIPERACILLIN/TAZOBACTAM 4.5 GM in DEXTROSE 5% 100 ML IV SCH ×3 (04:18→20:29)
[2021-04-25] MEDS: LEVOTHYROXINE SODIUM 50 MCG TABLET PO SCH (05:38)
[2021-04-25] MEDS: DAPTOmycin 400 MG in SYRINGE 0 ML IV SCH (05:38)
--- NOTE | 2021-04-25 06:04 | Ultrasound Report ---
ULTRASOUND BILATERAL LOWER EXTREMITY VENOUS CLINICAL HISTORY: Lower extremity edema. COMPARISON STUDY: No priors. TECHNIQUE: Real-time, grayscale, and color Doppler sonography of the deep veins of the right and left lower extremity was performed from the inguinal crease to the calf. Compression and augmentation wer e utilized. FINDINGS: There is no sonographic evidence of deep venous thrombosis identified in the right or left lower extremity. The common femoral, superficial femoral, and popliteal veins are patent and normally compressible bilaterally. The greater saphenous vein and the profunda femoris vein at the junction w ith the common femoral vein are clear in both legs. The visualized calf veins are patent bilaterally. Soft tissue edema is noted in both legs. IMPRESSION: There is no sonographic evidence of deep venous thrombosis identified in the right or lef t lower extremity. ACT 112: Negative or not required by law. Electronically signed by: Jaswinder Mccurdy M.D. 04/25/2021 6:03 AM
[2021-04-25 06:27] LABS: Hematocrit (blood only) 46.8 % (42-52); Mean Corpuscular Hemoglobin 27.2 pg (25-34); Mean Corpuscular Hgb Conc 29.9 g/dL (32-36); Mean Corpuscular Volume 91.1 fL (80-100); Mean Platelet Volume 9.3 fL (7.4-10.4); Platelet Count 284 K/uL (130-400); RDW Coefficient of Variation 15.9 % (11.5-14.5); RDW Standard Deviation 53.1 fL (36.4-46.3); Red Blood Count 5.14 M/uL (4.7-6.1); White Blood Count 11.85 K/uL (4.8-10.8)
[2021-04-25 06:51] LABS: BUN Creatinine Ratio 21.8 (10-20); Calcium 9.6 mg/dl (8.5-10.1); Creatinine Clr Calc Pharmacy 61.9 ml/min; Est GFR (African American) 63.5 ml/min; Est GFR (Non-African American) 54.8 ml/min; Potassium 4.3 mmol/L (3.5-5.1)
[2021-04-25] MEDS: INSULIN ASPART 100 UNITS/ML 3 ML PEN SC SCH ×5 (08:15→20:30)
[2021-04-25] MEDS ORDERED: predniSONE 20 MG TAB PO SCH ×2 (09:00)
[2021-04-25] MEDS: LOSARTAN POTASSIUM 50 MG TAB PO SCH (09:30)
[2021-04-25] MEDS: INSULIN GLARGINE SOLOSTAR 100 UNITS/ML 3 ML PEN SC SCH ×2 (09:30→20:31)
[2021-04-25] MEDS: PROPRANOLOL HCL 60 MG LA CAP PO SCH (09:30)
[2021-04-25] MEDS: UMECLIDINIUM BROMIDE 62.5MCG/BLISTER 7 PUFFS/INHALER INH SCH (09:30)
[2021-04-25] MEDS: FUROSEMIDE 20 MG TAB PO SCH (09:30)
[2021-04-25] MEDS: NYSTATIN POWDER 15GM BTL EXT SCH ×3 (09:30→20:31)
[2021-04-25] MEDS: hydroCHLOROthiazide 25 MG TAB PO SCH (09:30)
[2021-04-25] MEDS: ASPIRIN 81 MG ECTAB PO SCH (09:30)
[2021-04-25] MEDS: POTASSIUM CHLORIDE 10 MEQ TABCR PO SCH (09:30)
--- NOTE | 2021-04-25 11:45 | XCELERA ---
[id number] \\[id number]
--- NOTE | 2021-04-25 12:02 | Electrocardiogram Report ---
Test Reason : Blood Pressure : / mmHG Vent. Rate : 074 BPM Atrial Rate : 072 BPM P-R Int : 212 ms QRS Dur : 104 ms QT Int : 406 ms P-R-T Axes : 074 020 082 degrees QTc Int : 450 ms Sinus rhythm with 1st degree A-V block Premature ventricular complexes Nonspecific ST and T wave abnormality Abnormal ECG When compared with ECG of 28-SEP-2018 21:30, QT has shortened Confirmed by Zac Ernst ([id number]) on 04/25/2021 12:02:00 PM Referred By: REFERRED SELF Confirmed By:Zac Ernst
--- NOTE | 2021-04-25 16:40 | Communication Note ---
Date of Service: April 25, 2021 I saw the patient with the resident physician and confirmed logan portions of the history and physical examination. I agree with the impression and plan as noted in the resident documentation, as summarized below. This patient was admitted early on this date by the overnight admitting team. 85-year-old male who seems to have had a gradual decline over the last 12 to 18 months. He tells me that when the pandemic started, with his health and that of his 's, they decided to pretty much stay at home. Unfortunately, earlier this year, his and since that time he has relegated himself to home. He has several children who live in the area that will check on him; the patient self is that really left his house. He is to follow with Dr. Horvath, although he is not gone to a appointment since the start of the pandemic. At some point yesterday, he had a fall and when his son arrived, his son could not get him up off the floor. He was brought to the emergency department and at some point in route there was a report of hypoxia, although this quickly improved with supplemental oxygen. He really does not report being dyspneic. He reports generalized weakness -he reports this being a gradual worsening was just reached the point yesterday when he could not get up post falling. He was a smoker, although quit about 20 years ago. Exam 117/54, 72, 18, 37 C, 92% on 4 L via nasal cannula Pleasant. No distress. No complaints other than being weak HEENT grossly unremarkable Heart regular rate and rhythm Lungs clear without wheezing; excellent air exchange Abdomen obese but nontender Decubitus ulcer stage III on right medial buttocks Bilateral lower extremity edema with erythema with areas of skin breakdown Chronic thickened/callused skin bilateral ankles Data White blood cell count 11.85, hemoglobin 14, platelet count 284 Sodium 137, potassium 4.3, BUN 26, creatinine 1.2 Lactate 1.6 AST 18, ALT 11, alkaline phosphatase 93 C-reactive protein 1.91 COVID-19 swab is negative Blood culture is pending. Culture of the decubitus ulceration on the buttocks is growing staph species Transthoracic echocardiogram performed this morning shows preserved left ventricular function with ejection fraction 55 to 60%, mild left ventricular hypertrophy (concentric), no regional wall motion abnormalities. Venous Dopplers of lower extremities were negative. CT of the chest was negative for PE. Does note findings consistent with pulmonary hypertension. Impression and Plan Cellulitis (bilateral lower extremities, sacral decubiti ulcer) Hypoxia Diabetes, uncertain control He was given a dose of IV Solu-Medrol emergency department, although upon ree xamination today, pretty good air exchange with no wheezing. We will hold off on additional steroids at this point. Will reassess tomorrow. Continue daptomycin/Zosyn, pending wound culture Consult wound care PT/OT Body habitus and radiographic findings suggestive of obstructive sleep apnea; agree with outpatient sleep study. Additional diagnoses per resident documentation
--- NOTE | 2021-04-25 17:36 | Hospitalist Progress Note ---
Date of Service April 25, 2021 Assessment & Plan (1) Acute respiratory failure with hypoxia: (2) Cellulitis of buttock: (3) Cellulitis, perineum: (4) Diabetes with neurologic complications: (5) CHF (congestive heart failure): (6) Hyperlipidemia: (7) Hypertension: (8) Hypothyroidism: (9) Occlusion of carotid artery: (10) Stage 2 chronic kidney disease: Plan: 85-year-old male past medical history significant for chronic buttock decubitus ulcer, CHF (per record, no Echo on file), DM2 on insulin therapy, HTN, HLD, hypothyroidism, CKD, 68-[id number]-send smoking history admitted for skin/soft tissue infection and acute hypoxic respiratory failure. 1. Acute hypoxic respiratory failure: -While unclear in etiology, suspicious for COPD as patient has a robust smoking history. -BNP normal, no signs of fluid overload. Continue home Lasix 20 mg p.o. with low-sodium diet. Do not suspect findings are secondary to CHF exacerbation. -No PE on imaging. -Receiving Dapto/Zosyn for buttock infection as described below. No signs of pneumonia on imaging or exam. -treated with Solu-Medrol 80 mg x 1, and then prednisone p.o. taper --> prednisone discontinued as patient doing better and does not appear to stem from COPD -daily Spiriva (recommend on discharge), scheduled DuoNebs, and as needed albuterol. -Suspect that patient may have a baseline oxygen requirement given that he has been dealing with shortness of breath for years. -Patient would likely benefit from a sleep study to determine if he has central/obstructive sleep apnea on top of obstructive disease. 2. Stage III decubitus ulcer, buttock/perineal cellulitis: -Patient with a several years history of nonhealing decubitus ulcer, previously following with wound care clinic. -Has not been following with wound care clinic due to COVID-19 pandemic and fear of leaving the house. -Presents with findings suggestive of infection both on lab work and exam. -Blood and wound cultures collected, thus far wound culture already growing staph. -Dapto/Zosyn initiated to cover for MRSA and Pseudomonas given risk factors. -Wound care inpatient nursing consulted. -No findings on exam suggestive of Deena's; should patient start to decompensate or have worsening on exam/lab work would recommend reimaging. -Nystatin topical 3 times daily for candidal infection. -Legs appear to be chronically red and swollen; is on antibiotics for buttock cellulitis regardless. 3. Asymptomatic bacteruria UA: trace leukoesterase, urine WBCs -urine culture pending 4. CHF -cont. home lasix 20mg PO -echo pending 5. DM2: Patient is on insulin therapy at baseline; last A1c 8.7% in 2019. -We will start patient on basal/bolus insulin with adjustments as needed based on intake and steroid use. -DM2 diet. -A1c ordered with AM labs. 6. Hypertension, hyperlipidemia, PAOLA: -Continue daily aspirin, HCTZ, losartan, propranolol. -holding statin given daptomycin 7. Hypothyroidism: -Continue home levothyroxine. CODE STATUS: Full code FEN: Heart healthy, DM2, low-sodium diet DVT prophylaxis: Lovenox 40 mg subcu twice daily Dispo: Med/Surg Admission and Anticipated Discharge Date Admission Date: April 25, 2021 Supervising Physician Co-Signing Physician Notes I also saw the patient with the resident physician and confirmed logan portions of the history and exam. Please see my separate communication note for my complete attestation. Subjective Patient laying in bed with oxygen mask on. He says his legs still feel extremely weak. Weakness began couple of years ago but have exacerbated over the last couple weeks to the point where he fell twice prompting him to come into the ER. Has not seeked medical care since COVID began. His earlier this year so he has been very unmotivated towards his health. Review of Systems Constitutional: no fever, no chills and no malaise Respiratory: no cough and no dyspnea Cardiovascular: no chest pain, no palpitations and no edema Gastrointestinal: + constipation; no abdominal pain and no diarrhea/loose stools Physical Exam Constitutional: WD/WN, vitals as above Eyes: PERRL, conjunctivae normal, anicteric sclerae ENMT: external ear and nose normal, oropharynx normal Neck: normal visual inspection Respiratory: normal respiratory effort, lungs clear to auscultation Cardiovascular: RRR, no murmur, no edema Gastrointestinal (Abdomen): normal bowel sounds, soft, nontender, no hepatosplenomegaly Musculoskeletal: no cyanosis or clubbing, extremities motor strength 5/5 Skin: bilateral venous stasis with chronic erythema and scaling of skin, stage 3 decubitus ulcer inferior gluteal crease Psychiatric: A+Ox3, euthymic affect Results & Data Results & Data ([facility]) Vital Signs (Past 12 Hours) Vital Signs Temp Pulse Pulse Resp BP BP Pulse Ox 04/25/21 15:12 72 18 92 04/25/21 12:00 37 C 66 18 117/54 L 92 04/25/21 10:53 56 L 18 94 04/25/21 07:15 61 15 95 04/25/21 06:30 58 L 12 119/52 L 95 Resident Activity Tracking Resident Involvement: Resident Care Provided Care Provided: Adult Hospital Medicine
[2021-04-25] MEDS ORDERED: traMADol HCL 50 MG TABLET PO STA (19:20)
[2021-04-26] MEDS: ALBUT/IPRATROP 3MG/0.5MG NEB 3 ML VIAL NEB SCH ×7 (03:53→22:57)
[2021-04-26] MEDS: PIPERACILLIN/TAZOBACTAM 4.5 GM in DEXTROSE 5% 100 ML IV SCH ×3 (04:03→20:28)
[2021-04-26] MEDS: ENOXAPARIN INJ 40 MG/0.4 ML SYR SQ SCH ×2 (05:58→18:21)
[2021-04-26] MEDS: DAPTOmycin 400 MG in SYRINGE 0 ML IV SCH (05:58)
[2021-04-26] MEDS: LEVOTHYROXINE SODIUM 50 MCG TABLET PO SCH (06:35)
[2021-04-26 08:04] LABS: Estimated Average Glucose 174 mg/dl; Hemoglobin A1C 7.7 % (4.5-5.6)
[2021-04-26] MEDS: PROPRANOLOL HCL 60 MG LA CAP PO SCH (08:07)
[2021-04-26] MEDS: LOSARTAN POTASSIUM 50 MG TAB PO SCH (08:07)
[2021-04-26] MEDS: POTASSIUM CHLORIDE 10 MEQ TABCR PO SCH (08:07)
[2021-04-26] MEDS: ASPIRIN 81 MG ECTAB PO SCH (08:08)
[2021-04-26] MEDS: hydroCHLOROthiazide 25 MG TAB PO SCH (08:08)
[2021-04-26] MEDS: FUROSEMIDE 20 MG TAB PO SCH (08:08)
[2021-04-26] MEDS: UMECLIDINIUM BROMIDE 62.5MCG/BLISTER 7 PUFFS/INHALER INH SCH (08:08)
[2021-04-26] MEDS: INSULIN GLARGINE SOLOSTAR 100 UNITS/ML 3 ML PEN SC SCH ×2 (08:09→20:27)
[2021-04-26] MEDS: INSULIN ASPART 100 UNITS/ML 3 ML PEN SC SCH ×4 (08:12→20:26)
[2021-04-26 08:39] LABS: Hematocrit (blood only) 41.4 % (42-52); Hemoglobin 12.6 g/dL (14.0-18.0); Mean Corpuscular Hemoglobin 26.7 pg (25-34); Mean Corpuscular Hgb Conc 30.4 g/dL (32-36); Mean Corpuscular Volume 87.7 fL (80-100); Mean Platelet Volume 8.9 fL (7.4-10.4); Platelet Count 302 K/uL (130-400); RDW Coefficient of Variation 15.5 % (11.5-14.5); RDW Standard Deviation 50.2 fL (36.4-46.3); Red Blood Count 4.72 M/uL (4.7-6.1); White Blood Count 17.85 K/uL (4.8-10.8)
[2021-04-26] MEDS: NYSTATIN POWDER 15GM BTL EXT SCH ×3 (09:00→20:26)
[2021-04-26 09:02] LABS: BUN Creatinine Ratio 24.5 (10-20); Calcium 9.4 mg/dl (8.5-10.1); Creatinine Clr Calc Pharmacy 55.9 ml/min; Est GFR (African American) 56.1 ml/min; Est GFR (Non-African American) 48.4 ml/min; Potassium 4.2 mmol/L (3.5-5.1)
[2021-04-26] MEDS: ACETAMINOPHEN 325 MG TAB PO PRN (14:39)
[2021-04-26] MEDS ORDERED: traMADol HCL 50 MG TABLET PO STA (14:50)
[2021-04-26] MEDS: ONDANSETRON INJ 2 MG/ML 2 ML VIAL IV PRN (15:26)
[2021-04-26] MEDS ORDERED: KETOROLAC TROMETHAMINE 15 MG/ML VIAL IV ONE (15:42)
[2021-04-26] MEDS ORDERED: EUCERIN CR 120 GM JAR EXT PRN (17:12)
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
--- NOTE | 2021-04-26 18:44 | Billing Data ---
Date of Service April 26, 2021 Coding Level of Care Code 13493 Subseq Hosp Care Lvl 3
--- NOTE | 2021-04-26 18:45 | Billing Data ---
Date of Service April 26, 2021 Coding Level of Care Code 19518 Subseq Hosp Care Lvl 3
[2021-04-27] MEDS: ALBUT/IPRATROP 3MG/0.5MG NEB 3 ML VIAL NEB SCH ×4 (02:15→19:10)
[2021-04-27] MEDS: PIPERACILLIN/TAZOBACTAM 4.5 GM in DEXTROSE 5% 100 ML IV SCH ×3 (03:42→21:33)
[2021-04-27] MEDS: ENOXAPARIN INJ 40 MG/0.4 ML SYR SQ SCH ×2 (05:44→18:04)
[2021-04-27] MEDS: DAPTOmycin 400 MG in SYRINGE 0 ML IV SCH (05:44)
[2021-04-27] MEDS: LEVOTHYROXINE SODIUM 50 MCG TABLET PO SCH (05:45)
[2021-04-27 06:41] LABS: Hematocrit (blood only) 41.3 % (42-52); Hemoglobin 12.4 g/dL (14.0-18.0); Mean Corpuscular Hemoglobin 26.8 pg (25-34); Mean Corpuscular Volume 89.4 fL (80-100); Mean Platelet Volume 9.2 fL (7.4-10.4); Platelet Count 291 K/uL (130-400); RDW Standard Deviation 52.5 fL (36.4-46.3); Red Blood Count 4.62 M/uL (4.7-6.1); White Blood Count 11.19 K/uL (4.8-10.8)
[2021-04-27 07:01] LABS: BUN Creatinine Ratio 25.7 (10-20); Calcium 9.2 mg/dl (8.5-10.1); Creatinine Clr Calc Pharmacy 48.5 ml/min; Est GFR (African American) 47.4 ml/min; Est GFR (Non-African American) 40.9 ml/min
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
[2021-04-27] MEDS: PROPRANOLOL HCL 60 MG LA CAP PO SCH (09:01)
[2021-04-27] MEDS: LOSARTAN POTASSIUM 50 MG TAB PO SCH (09:01)
[2021-04-27] MEDS: ASPIRIN 81 MG ECTAB PO SCH (09:01)
[2021-04-27] MEDS: hydroCHLOROthiazide 25 MG TAB PO SCH (09:01)
[2021-04-27] MEDS: INSULIN GLARGINE SOLOSTAR 100 UNITS/ML 3 ML PEN SC SCH ×2 (09:02→21:12)
[2021-04-27] MEDS: INSULIN ASPART 100 UNITS/ML 3 ML PEN SC SCH ×4 (09:07→21:11)
[2021-04-27] MEDS: UMECLIDINIUM BROMIDE 62.5MCG/BLISTER 7 PUFFS/INHALER INH SCH (09:09)
[2021-04-27] MEDS: ACETAMINOPHEN 325 MG TAB PO PRN ×2 (09:35→22:58)
[2021-04-27] MEDS: POTASSIUM CHLORIDE 10 MEQ TABCR PO SCH (09:36)
[2021-04-27] MEDS: NYSTATIN POWDER 15GM BTL EXT SCH ×3 (10:30→21:33)
[2021-04-27] MEDS: ONDANSETRON INJ 2 MG/ML 2 ML VIAL IV PRN (17:58)
--- NOTE | 2021-04-27 18:06 | Billing Data ---
Date of Service April 27, 2021 Coding Level of Care Code 45208 Subseq Hosp Care Lvl 3
[2021-04-28 02:32] LABS: Appearance Urine Cloudy (Clear); Bilirubin Urine Negative (Negative); Blood Urine 3+ (Negative); Color Urine Dark Yellow; Epithelial Cell Urine Auto >30 /lpf (0-5); Glucose Urine UA Negative (Negative); Ketones Urine Trace (Negative); Leukocyte Esterase Urine 1+ (Negative); Nitrite Urine Negative (Negative); Protein Urine 2+ (Negative); RBC Urine Automated >30 /hpf (0-4); Specific Gravity Urine 1.025 (1.000-1.030); Urobilinogen Urine Negative (Negative)
[2021-04-28 03:35] LABS: Bacteria Urine Automated 2+ (Negative)
--- NOTE | 2021-04-28 05:14 | Death Pronouncement Note ---
Date of Service April 28, 2021 Pronouncement Note Admission Date Admission Date: April 25, 2021 Date and Time of Date of : 04/28/21 Time of : 05:00 Contributing Factors (1) Weakness: (2) Acute respiratory failure with hypoxia: (3) Decubitus ulcer: (4) CHF (congestive heart failure): (5) Diabetes mellitus: (6) Hypertension: (7) Hypothyroidism: Summary Additional details: Called to patient bedside by nursing. Per nursing, went to give morning antibiotics and patient was noted not to be breathing, no heart sounds. I confirmed that patient did not have respirations, heart sounds, pulse. Pupils fixed and dilated. Please see day team discharge summary for details regarding patient's hospital course. Additional Data Confirmation of : no pulse, no respirations, no heart sounds and pupils fixed and dilated Family: contacted Attending/PCP notified?: Yes Attending physician: Jimmy Howell, DO Was code activated?: No Resident Activity Tracking Resident Involvement: Resident Care Provided Care Provided: Adult Hospital Medicine
--- NOTE | 2021-04-28 16:26 | Discharge Summary ---
Date of Service April 28, 2021 Admission HPI Per Admitting Provider 85-year-old male past medical history significant for chronic buttock decubitus ulcer, CHF (per record, no Echo on file), bilateral lower extremity chronic venous stasis, DM2 on insulin therapy, HTN, HLD, hypothyroidism, CKD, [id number] smoking history presented to the ER for worsening of weakness at home with a fall sustained yesterday. Son also provides some history. Per the patient, over the last week or so there have been 2 separate falls where he felt like his legs were overwhelmingly weak bilaterally. After the first fall, his son was able to pick him back up, however after yesterday's fall he was not able to do so, and EMS was called. En route to the ER patient was noted to be hypoxic in the 80s, improved and currently on 6LNC. Patient reports that he has had issues with shortness of breath for the last couple of years. He reports that the dyspnea he he feels in the ER is similar to that which she has been experiencing chronically. Per son, patient has chronic buttock decubitus ulcer and was following with wound care however this has not been happening due to patient's refusal to leave the house due to COVID-19. He has had this chronic wound for about 3 years, and prior to his passing away she was the one taking care of the wound. He also has chronic bilateral lower extremity edema and redness. No recent injuries to his legs. Reports that his third toe has been discolored for "months". He does not report any recent history of fevers or chills, nausea or vomiting, chest pain, lightheadedness or vertigo, urinary symptoms. He does endorse a chronic issue with constipation, and did have an episode of diarrhea 2 days ago. Patient lives at home with his son. He reports that he quit smoking many years ago, however smoked 1 to 2 packs/day for at least 20 years. He does not have a diagnosed history of sleep apnea though his son reports he does often snore or gasp at night. He has not had to wear oxygen in the past. In the ER patient was noted to have a decubitus ulcer to the buttocks that was tender to palpation with concern for infection. Given shortness of breath, CTA chest was performed which did not show any signs of pneumonia, PE, or fluid overload. It did however note signs of pulmonary hypertension. CT abdomen and pelvis revealed some edema and peripancreatic fat stranding of the pancreatic head. Imaging was unable to evaluate the inferior gluteal crease due to [id number]. He was noted to have elevated WBC count to 12.27, creatinine 1.27 (baseline), normal lactate, BNP 152, lipase normal. UA without bacteria, no nitrites, trace leuk esterase. COVID-19 testing negative. He was given vancomycin and Zosyn and consult was placed for admission. Principal Diagnosis Multifactorial hypoxia, buttocks ulcer with surrounding cellulitis (see hospital course) Discharge Exam Please see note, patient was not seen by myself due to the time of his passing Discharge Data Allergies Allergy/AdvReac Type Severity Reaction Status Date / Time amlodipine Allergy Unknown unknown Verified 04/25/21 02:06 primidone Allergy Unknown unknown Verified 04/25/21 02:06 sertraline Allergy Unknown Unknown Verified 04/25/21 02:06 Sulfa (Sulfonamide Allergy Unknown Unknown Verified 04/25/21 02:06 Antibiotics) Consultations 04/24/21 23:38 ED Decision to Admit Stat Ordered Studies 04/24/21 22:16 CT abd pelvis IV con only Stat CT angio chest PE protocol Stat 04/24/21 22:19 US venous doppler [facility] Urgent Hospital Course (1) : Patient was overall appearing to be stable/slowly improving, and then passed rather suddenly without much warning in the early part of the morning today. Exact cause is not entirely clear, certainly with his comorbidities a cardiac event such as arrhythmia would be a high probability reason for him to have passed suddenly. In a more holistic view, it also seems that he was quite ready to join his , since her passing. (2) Weakness: -Patient with prolonged inactivity for the past few years since [facility] and probably worse recently since . -Overall deconditioningmultifactoriallargely from inactivity, also from respiratory status, probably acutely from physiologic stress from infected ulcer -Plan was ongoing PT/OT and rehab, as well as treating underlying comorbidities. (3) Acute respiratory failure with hypoxia: -Was highly suspicious of COPD and PINA/OHShe was initiated on inhalers, with plans for PFTs as an outpatient. Had discussed with patient anticipated overnight pulse ox and morning blood gas closer to discharge to facilitate BiPAP, and if he did not show quite enough on those findings, then had discussed sleep study. Overall was stably maintained on about 3 L nasal cannula throug hout his hospital stay. (4) Decubitus ulcer: -Sacral ulcer with secondary infectionwas treated with local wound care and broad IV antibiotics (5) CHF (congestive heart failure): Initially this was of suspicion, but given that he was clinically on the dry side of euvolemic, his lungs were clear, but his oxygen re quirement/breathing symptoms were the same, effectively HFpEF was ruled out (6) Diabetes mellitus: A1c was 7.7, sugars were reasonably controlled here (7) Hypertension: BP had been reasonably controlled here (8) Hypothyroidism: lovenox was utilized for DVT proph, making VTE an unlikely cause for Total Time Total Time Spent Total Time Spent (In Minutes): <30 Discharge Plan Discharge Items Patient Disposition: Other Date/Time: 04/28/21 05:00 Coding Level of Care Code None Diagnoses Weakness R53.1 Acute respiratory failure with hypoxia J96.01 Decubitus ulcer L89.90 CHF (congestive heart failure) I50.9 Diabetes mellitus E11.9 Hypertension I10 Hypothyroidism E03.9 R99
--- NOTE | 2021-05-03 11:03 | Pharmacy Report ---
Pharmacy Progress Note - Date of Service May 03, 2021 - Progress Note Pharmacy was contacted by an Emergency Room nurse on May 02, 2021 and notified that said nurse had found a bag of patient's own medications in the Emergency Room. Given this patient had greater than 72 hours ago, the decision was made to destroy the medications in their entirety. The following medications (quantities) were destroyed on May 03, 2021: * Losartan Potassium 100 mg (206) * Pravastatin Sodium 80 mg (97) * Furosemide 20 mg (7) * Hydrochlorothiazide 25 mg (206) * Propranolol HCl ER 120 mg (91) * Vitamin D3 2000 IU (203) * Aspirin 81 mg (177) * Cetirizine 10 mg (80)
== END 2021-04-28 06:47 | disposition expired | DRG 189 ==
LOC: ED 21:11 → SUATTDRO 04-25 00:58 → EDINP 04-25 00:58 → 2W 04-25 01:22